=== PATIENT | female | born 1990 | race Caucasian/White ===

== ENCOUNTER 2018-08-13 19:12 | Emergency (ER) | END 2018-08-14 01:57 | disposition left against medical advice (07) ==

== ENCOUNTER 2018-08-14 08:57 | Emergency (ER) | END 2018-08-14 11:14 | disposition home or self-care (01) ==

== ENCOUNTER 2019-02-22 07:22 | Emergency (ER) | payer MEDICAID ==
[~2019-02-22] VITALS: Ht 165.1 cm; Wt 54.9 kg
[~2019-02-22 07:22] MED LIST: IBUP-1561 PO
[2019-02-22 07:26] VITALS: BP 109/63; PULSE 92; RESP 18; Ht 165.1 cm; Wt 54.9 kg
[2019-02-22] MEDS ORDERED: ACET325T33 PO (09:23)
[2019-02-22] MEDS ORDERED: NITR-58 PO (09:23)
--- NOTE | 2019-02-22 09:28 | ERD ---
ER Documentation Chief Complaint Chief Complaint left pelvic pain 17wks , breast discharge & bleeding HPI 28-year-old female presenting with left pelvic pain. Patient is about 18 weeks . She is also complaining of some discharge from her left breast with bleeding. A0. Denies any vaginal discharge or bleeding. Denies dysuria. Denies other medical problems. NKDA. Surgical history denies. Social history denies ROS All systems reviewed and are negative except as per history of present illness. Medications Home Meds Active Scripts Acetaminophen* (Tylenol*) 325 Mg Tablet, 2 TAB PO Q6 PRN for PAIN AND OR ELEVATED TEMP, #20 TAB Prov:ALYSE RODRIGUEZ PA-C 02/22/19 Nitrofurantoin Monohyd Macrocr* (Macrobid*) 100 Mg Capsr, 100 MG PO BID for 14 Days, CAP Prov:ALYSE RODRIGUEZ PA-C 02/22/19 Ibuprofen* (Motrin*) 400 Mg Tab, 400 MG PO Q6, #30 TAB Prov:JOSE MCKOEN PA-C 08/14/18 Allergies Allergies: Coded Allergies: No Known Allergy (Unverified , 08/13/18) PMhx/Soc Medical and Surgical Hx: pt denies Medical Hx, pt denies Surgical Hx Hx Alcohol Use: No Hx Substance Use: No Hx Tobacco Use: No Smoking Status: Never smoker FmHx Family History: No diabetes, No coronary disease, No other Physical Exam Vitals Vital Signs Date Temp Pulse Resp B/P (MAP) Pulse Ox O2 O2 Flow FiO2 Time Delivery Rate 02/22/19 97.8 92 18 109/63 99 07:26 (78) Physical Exam GENERAL: The patient is well-appearing, well-nourished, in no acute distress HEENT: Atraumatic. Conjunctivae are pink. Pupils equal, round, and reactive to light. There is no scleral icterus. Tympanic membranes clear bilaterally. Oropharynx clear. NECK: C-spine is soft and supple. There is no meningismus. There is no cervical lymphadenopathy. CHEST: Clear to auscultation bilaterally. There are no rales, wheezes or rhonchi. HEART: Regular rate and rhythm. No murmurs, clicks, rubs or gallops ABDOMEN:Soft, nontender and nondistended. Good bowel sounds. No rebound or guarding. No gross peritonitis. No gross organomegaly or masses. Results 24 hrs Laboratory Tests Test 02/22/19 07:56 Urine Color STRAW Urine Clarity CLEAR Urine pH 7.0 Urine Specific [place] 1.002 Urine Ketones NEGATIVE mg/dL Urine Nitrite NEGATIVE mg/dL Urine Bilirubin NEGATIVE mg/dL Urine Urobilinogen NEGATIVE mg/dL Urine Leukocyte Esterase 1+ [place]/ul Urine Microscopic RBC 1 /HPF Urine Microscopic WBC 3 /HPF Urine Squamous Epithelial Cells FEW /HPF Urine Bacteria FEW /HPF Urine Hemoglobin NEGATIVE mg/dL Urine Glucose NEGATIVE mg/dL Urine Total Protein NEGATIVE mg/dl Procedures/MDM DIAGNOSTIC IMAGING REPORT Patient: AL PABLO : 1990 Age: 28 Sex: F MR #: [id number] DOS: 02/22/19 0747 Ordering MD: SHEREE RODRIGUEZ PA-C Location: [facility] Room/Bed: PROCEDURE: US OB AND ULTRASOUND CERVIX. CLINICAL INDICATION: Size and dates , pelvic pain TECHNIQUE: Multiple sonographic images of the pelvis and gravid uterus were obtained. The images were reviewed on a PACS workstation. COMPARISON: No prior studies are available for comparison. FINDINGS: Cervix: Length: 3.2 cm. Closed and competent. Gestation: Single live intrauterine gestation. Cardiac activity: 142 beats per minute. Presentation: Variable Placenta: Location: Anterior. Appearance: No previa or abruption. MVP = 3.7 cm Measurements: BPD = 4.0 cm, 18 weeks and 0 days HC = 14.5 cm, 17 weeks and 5 days AC = 12.3 cm, 18 weeks and 0 days FL = 2.6 cm, 18 weeks and 0 days Gestational Age: AUA estimated gestational age: 18 weeks 0 days LMP estimated gestational age: 17 weeks 6 days AUA estimated date of delivery: 07/26/19 The EFW = 218 g, 51.8%ile based on LMP age. RPTAT: AA IMPRESSION: Single live intrauterine gestation of approximately 18 weeks and 0 days based on ultrasound measurements. MDM: 28 yr old female complaining of pelvic pain. I have low suspicion for complication. Patient likely has normal pelvic pain with and a UTI which I will treat with antibiotics. Patient's breast exam is non- concerning is likely normal for hormonal changes in . Patient is recommended to follow-up with primary care. I have low suspicion for other acute abdominal emergency. Patient is discharged with strict ER precautions and supportive medications. All questions answered at discharge Departure Diagnosis: Primary Impression: UTI (urinary tract infection) Additional Impression: Pelvic pain complicating Condition: Stable Patient Instructions: Understanding Urinary Tract Infections (UTIs), Pelvic Pain In : Unclear (2-3 Trimester) Referrals: COMMUNITY CLINICS YOU HAVE RECEIVED A MEDICAL SCREENING EXAM AND THE RESULTS INDICATE THAT YOU DO NOT HAVE A CONDITION THAT REQUIRES URGENT TREATMENT IN THE EMERGENCY DEPARTMENT. FURTHER EVALUATION AND TREATMENT OF YOUR CONDITION CAN WAIT UNTIL YOU ARE SEEN IN YOUR DOCTORS OFFICE WITHIN THE NEXT 1-2 DAYS. IT IS YOUR RESPONSIBILITY TO MAKE AN APPOINTMENT FOR FOLOW-UP CARE. IF YOU HAVE A PRIMARY DOCTOR --you should call your primary doctor and schedule an appointment IF YOU DO NOT HAVE A PRIMARY DOCTOR YOU CAN CALL OUR PHYSICIAN REFERRAL HOTLINE AT IF YOU CAN NOT AFFORD TO SEE A PHYSICIAN YOU CAN CHOSE FROM THE FOLLOWING THE [facility] [address] [facility] [address] [facility]. [facility] [address] [facility] [address] [facility] [phone] [facility]. [facility]. [address] [place] FULL DECATOR O[place] [id number] [facility] [address] [place], [place] [phone] OFFICE FAX MCKENZIE ULLOA [address] [place], [place] [id number] [address]. LAWRENCE PRESTON [address] [place] [address] [address] [facility] [address] [facility], [address] [phone] MATT [address]INDER [address] [facility] [place], [place] [phone] [facility] [address] [place] [address] [facility] [id number] - SHARON STEWART [address] [facility] [address] [address] NAGY, ANGIE [address] [facility]. [address], [facility] [address] [address] [address] [place], [place] [id number] Additional Instructions: FOLLOW UP WITH YOUR PRIMARY CARE PHYSICIAN TOMORROW.Return to this facility if you are not improving as expected. ALYSE RODRIGUEZ PA-C February 22, 2019 09:28
== END 2019-02-22 09:28 | disposition home or self-care (01) ==
LOC: FTE 07:22
DX: O26.892 Other specified pregnancy related conditions, second trimester (principal); O23.42 Unspecified infection of urinary tract in pregnancy, second trimester; R10.2 Pelvic and perineal pain; Z3A.18 18 weeks gestation of pregnancy
CPT/HCPCS: 76805; 81001; Z7502